=== PATIENT | female | born 1935 | race Caucasian/White ===

== ENCOUNTER 2017-08-17 10:56 | Emergency (ER) | payer OTHER ==
[~2017-08-17] VITALS: Ht 162.6 cm; Wt 61.5 kg
[2017-08-17 11:02] VITALS: BP 182/85
== END 2017-08-17 12:44 | disposition home or self-care (01) ==
LOC: ED 12:00
DX: M75.32 Calcific tendinitis of left shoulder (principal); M13.112 Monoarthritis, not elsewhere classified, left shoulder; E11.9 Type 2 diabetes mellitus without complications; Z90.49 Acquired absence of other specified parts of digestive tract
CPT/HCPCS: 99284

== ENCOUNTER 2017-10-12 10:29 | Emergency (ER) | payer OTHER ==
[~2017-10-12] VITALS: Ht 162.6 cm; Wt 60.0 kg
[2017-10-12 11:56] LABS: BASOPHILS # (AUTO) 0.04 x10^3/uL (0-0.1); BASOPHILS % (AUTO) 0 % (0-1); EOSINOPHILS # (AUTO) 0.21 x10^3/uL (0-0.4); EOSINOPHILS % (AUTO) 2 % (1-7); LYMPHOCYTES # (AUTO) 2.86 x10^3/uL (1-3.4); LYMPHOCYTES % (AUTO) 29 % (22-44); MD NO; MEAN CORPUSCULAR VOLUME 90.9 fL (80-100); MEAN PLATELET VOLUME 7.4 fL (7.4-10.4); MONOCYTES # (AUTO) 0.38 x10^3/uL (0.2-0.8); MONOCYTES % (AUTO) 4 % (2-9); NEUTROPHILS # (AUTO) 6.43 x10^3/uL (1.8-6.8); NEUTROPHILS % (AUTO) 65 % (42-75); PLATELET COUNT 374 x10^3/uL (130-400); RED BLOOD COUNT 4.51 x10^6/uL (3.82-5.3); RED CELL DISTRIBUTION WIDTH 14.3 % (9.6-15.2)
[2017-10-12] MEDS ORDERED: MORPHINE SULFATE 4 MG/ML, 1ML ONE (11:57)
[2017-10-12] MEDS ORDERED: ONDANSETRON ODT 4 MG ONE (11:57)
[2017-10-12] MEDS ORDERED: SODIUM CHLORIDE FLUSH 10ML SYR IVF ONE (12:00)
[2017-10-12] MEDS ORDERED: MORPHINE SULFATE 4 MG/ML, 1ML IVPush PRN (12:00)
[2017-10-12] MEDS ORDERED: ONDANSETRON ODT 4 MG PO ONE (12:00)
[2017-10-12 12:09] LABS: ALANINE AMINOTRANSFERASE 21 U/L (12-78); ALBUMIN 3.6 g/dL (3.4-5.0); ANION GAP 9 mmol/L (5-15); CALCIUM 9.4 mg/dL (8.5-10.1); CHLORIDE 103 mmol/L (98-107); CREATININE 0.92 mg/dL (0.55-1.02)
[2017-10-12 12:14] LABS: ALKALINE PHOSPHATASE 54 U/L (45-117); BILIRUBIN,TOTAL 0.3 mg/dL (0.2-1.0); TOTAL PROTEIN 7.4 g/dL (6.4-8.2); TROPONIN I < 0.015 ng/mL (0.000-0.045)
[2017-10-12 12:28] LABS: MICROSCOPIC INDICATED
[2017-10-12 12:39] LABS: CULTURE INDICATED? YES
[2017-10-12] MEDS ORDERED: OMNIPAQUE 350 MG/ML, 100ML BOTTLE ONE (13:23)
[2017-10-12 14:08] VITALS: BP 166/86
== END 2017-10-12 14:18 | disposition home or self-care (01) ==
LOC: ED 13:30
DX: K40.90 Unilateral inguinal hernia, without obstruction or gangrene, not specified as recurrent (principal); N94.89 Other specified conditions associated with female genital organs and menstrual cycle; E11.9 Type 2 diabetes mellitus without complications; I10 Essential (primary) hypertension; M19.90 Unspecified osteoarthritis, unspecified site
CPT/HCPCS: 36415; 74177; 80053; 81001; 83690; 84484; 85025; 87086; 96374; 99285; Q0162; Q9967

== ENCOUNTER 2018-05-25 15:42 | Inpatient (IN) | payer OTHER ==
[~2018-05-25] VITALS: Ht 162.6 cm; Wt 59.8 kg
[2018-05-25 16:27] LABS: BASOPHILS # (AUTO) 0.06 x10^3/uL (0-0.1); BASOPHILS % (AUTO) 1 % (0-1); EOSINOPHILS # (AUTO) 0.42 x10^3/uL (0-0.4); EOSINOPHILS % (AUTO) 4 % (1-7); LYMPHOCYTES # (AUTO) 3.76 x10^3/uL (1-3.4); LYMPHOCYTES % (AUTO) 33 % (22-44); MD NO; MEAN CORPUSCULAR HGB CONC 33.3 g/dL (32.4-35.8); MEAN CORPUSCULAR VOLUME 90.2 fL (80-100); MEAN PLATELET VOLUME 7.5 fL (7.4-10.4); MONOCYTES # (AUTO) 0.56 x10^3/uL (0.2-0.8); MONOCYTES % (AUTO) 5 % (2-9); NEUTROPHILS # (AUTO) 6.59 x10^3/uL (1.8-6.8); NEUTROPHILS % (AUTO) 58 % (42-75); PLATELET COUNT 407 x10^3/uL (130-400); RED BLOOD COUNT 4.51 x10^6/uL (3.82-5.3)
[2018-05-25] MEDS ORDERED: METF500T17 PO (16:31)
[2018-05-25 16:37] LABS: ALBUMIN 3.7 g/dL (3.4-5.0); ANION GAP 10 mmol/L (5-15); CALCIUM 9.6 mg/dL (8.5-10.1); CHLORIDE 105 mmol/L (98-107); CREATININE 1.09 mg/dL (0.55-1.02)
[2018-05-25 18:05] LABS: MICROSCOPIC AUTO
[2018-05-25 18:09] LABS: CULTURE INDICATED? YES
[2018-05-25] MEDS ORDERED: SODIUM CHLORIDE FLUSH 10ML SYR IVF PRN (21:00)
[2018-05-25] MEDS ORDERED: metformin PO (21:06)
[2018-05-25] MEDS ORDERED: diabetes medication PO (21:06)
[2018-05-25] MEDS ORDERED: bp med PO (21:10)
[2018-05-25] MEDS ORDERED: VENLAFAXINE PO (21:10)
[2018-05-25 21:22] VITALS: BP 172/71
[2018-05-25 21:23] VITALS: BP 154/72
[2018-05-25 21:24] VITALS: BP 120/67
[2018-05-25] MEDS ORDERED: PRAV10TA2 PO (22:45)
[2018-05-25] MEDS ORDERED: DOCUSATE 100 MG CAPSULE PO PRN (23:00)
[2018-05-25] MEDS ORDERED: ONDANSETRON 4 MG TABLET PO PRN (23:00)
[2018-05-25] MEDS ORDERED: ACETAMINOPHEN 325 MG TABLET PO PRN (23:00)
[2018-05-25] MEDS ORDERED: LIDODERM 5% PATCH TD PRN (23:00)
[2018-05-25] MEDS ORDERED: OMEP20CA14 PO (23:32)
[2018-05-25] MEDS ORDERED: METF10007 PO (23:32)
[2018-05-25] MEDS ORDERED: VENL150C6 PO (23:32)
[2018-05-25] MEDS ORDERED: COLE625T13 PO (23:32)
[2018-05-25] MEDS ORDERED: HYDROCHLOROTH12.5 MG PO (23:32)
[2018-05-26] VITALS (9 sets, daily range): BP systolic 110–169; BP diastolic 58–76
[2018-05-26] MEDS: SODIUM CHLORIDE 0.9% 1,000 ML IV SCH ×3 (01:30→22:46)
[2018-05-26 06:24] LABS: ALANINE AMINOTRANSFERASE 16 U/L (12-78); ALBUMIN 3.6 g/dL (3.4-5.0); ANION GAP 9 mmol/L (5-15); CALCIUM 9.8 mg/dL (8.5-10.1); CHLORIDE 104 mmol/L (98-107); CHOLESTEROL, TOTAL 212 mg/dL (140-239); CREATININE 0.96 mg/dL (0.55-1.02); TRIGLYCERIDES 245 mg/dL (50-200); VLDL CHOLESTEROL 49 mg/dL (0-25)
[2018-05-26 06:26] LABS: ALKALINE PHOSPHATASE 63 U/L (45-117); BILIRUBIN,TOTAL 0.3 mg/dL (0.2-1.0); CHOL/HDL RATIO 3.5; HDL CHOL % 28 % (28-40); HDL CHOLESTEROL (DIRECT) 60 mg/dL (40-60); LDL CHOLESTEROL,CALCULATED 103 mg/dL (54-169); LDL/HDL RATIO 1.7 (0.5-3.0); TOTAL PROTEIN 7.2 g/dL (6.4-8.2)
[2018-05-26] MEDS: INSULIN LISPRO 100 UNITS/ML, PEN SQ-INSULIN SCH ×4 (07:00→21:00)
[2018-05-26] MEDS ORDERED: LORazepam 0.5MG TABLET PO ONE (09:30)
[2018-05-26] MEDS: ASPIRIN 81 MG TABLET CHEW PO/NG SCH (09:32)
[2018-05-26] MEDS: metFORMIN 500 MG TABLET PO SCH ×2 (12:26→20:58)
[2018-05-26] MEDS: VENLAFAXINE 75 MG CAP ER PO SCH (12:26)
[2018-05-26] MEDS: COLESEVELAM 625 MG TABLET PO SCH ×2 (12:26→20:58)
[2018-05-26] MEDS ORDERED: OMEPRAZOLE 20 MG CAPSULE.DR PO ONE (14:00)
[2018-05-26] MEDS ORDERED: PRAVASTATIN 20 MG TABLET PO SCH (21:00)
[2018-05-27] VITALS (8 sets, daily range): BP systolic 146–188; BP diastolic 71–76
[2018-05-27 05:31] LABS: ANION GAP 6 mmol/L (5-15); CALCIUM 9.1 mg/dL (8.5-10.1); CHLORIDE 110 mmol/L (98-107)
[2018-05-27 05:32] LABS: CREATININE 0.96 mg/dL (0.55-1.02)
[2018-05-27 05:45] LABS: BASOPHILS # (AUTO) 0.03 x10^3/uL (0-0.1); BASOPHILS % (AUTO) 0 % (0-1); EOSINOPHILS # (AUTO) 0.42 x10^3/uL (0-0.4); EOSINOPHILS % (AUTO) 5 % (1-7); LYMPHOCYTES # (AUTO) 2.84 x10^3/uL (1-3.4); LYMPHOCYTES % (AUTO) 35 % (22-44); MD NO; MEAN CORPUSCULAR HEMOGLOBIN 30.4 pg (27.0-34.8); MEAN CORPUSCULAR VOLUME 89.4 fL (80-100); MEAN PLATELET VOLUME 7.4 fL (7.4-10.4); MONOCYTES # (AUTO) 0.43 x10^3/uL (0.2-0.8); MONOCYTES % (AUTO) 5 % (2-9); NEUTROPHILS # (AUTO) 4.33 x10^3/uL (1.8-6.8); NEUTROPHILS % (AUTO) 54 % (42-75); PLATELET COUNT 306 x10^3/uL (130-400); RED CELL DISTRIBUTION WIDTH 13.5 % (9.6-15.2)
[2018-05-27] MEDS: INSULIN LISPRO 100 UNITS/ML, PEN SQ-INSULIN SCH ×2 (07:00→11:00)
[2018-05-27] MEDS ORDERED: OMEPRAZOLE 20 MG CAPSULE.DR PO SCH (07:30)
[2018-05-27] MEDS: COLESEVELAM 625 MG TABLET PO SCH (08:25)
[2018-05-27] MEDS: VENLAFAXINE 75 MG CAP ER PO SCH (08:25)
[2018-05-27] MEDS: metFORMIN 500 MG TABLET PO SCH (08:25)
[2018-05-27] MEDS: ASPIRIN 81 MG TABLET CHEW PO/NG SCH (08:34)
[2018-05-27] MEDS ORDERED: LISINOPRIL 10 MG TABLET PO SCH (15:30)
[2018-05-27] MEDS ORDERED: LISI-167 PO (15:31)
[2018-05-27] MEDS ORDERED: ASPI-515 PO/NG ×2 (15:32→15:34)
== END 2018-05-27 16:30 | disposition home or self-care (01) | DRG 74 ==
LOC: ED 17:26 → EDIP 20:40 → 4EST 21:08
PROVIDERS: ADMIT Internal Medicine; ATTEND Internal Medicine
DX: G90.8 Other disorders of autonomic nervous system (principal); G45.9 Transient cerebral ischemic attack, unspecified; N17.9 Acute kidney failure, unspecified; I95.1 Orthostatic hypotension; E11.43 Type 2 diabetes mellitus with diabetic autonomic (poly)neuropathy; E11.69 Type 2 diabetes mellitus with other specified complication; E78.5 Hyperlipidemia, unspecified; G31.84 Mild cognitive impairment of uncertain or unknown etiology; I10 Essential (primary) hypertension; I45.10 Unspecified right bundle-branch block; R47.02 Dysphasia; Z87.891 Personal history of nicotine dependence; Z90.49 Acquired absence of other specified parts of digestive tract
CPT/HCPCS: 36415; 70450; 70551; 80048; 80053; 80061; 81001; 82040; 82962; 85025; 87086; 93005; 93306; 93880; 99285; G0378; 92522-GN; J7030

== ENCOUNTER 2018-07-05 11:46 | Emergency (ER) | payer OTHER ==
[~2018-07-05] VITALS: Ht 162.6 cm; Wt 60.0 kg
[~2018-07-05 11:46] MED LIST: ASPI-515 PO/NG; COLE625T13 PO; HYDROCHLOROTH12.5 MG PO; LISI-167 PO; METF10007 PO; METF500T17 PO; OMEP20CA14 PO; PRAV10TA2 PO; VENL150C6 PO; VENLAFAXINE PO; bp med PO; diabetes medication PO; metformin PO
[2018-07-05 11:59] VITALS: BP 166/90
[2018-07-05] MEDS ORDERED: COLE625T12 PO (12:29)
--- NOTE | 2018-07-05 12:59 | NUR ---
Patient/Caregiver given discharge instructions and they have confirmed that they understand the instructions. Patient ambulatory with steady gait.
== END 2018-07-05 13:01 | disposition home or self-care (01) ==
LOC: ED 12:27
DX: L98.8 Other specified disorders of the skin and subcutaneous tissue (principal)
CPT/HCPCS: 99281

== ENCOUNTER 2020-01-09 15:21 | Emergency (ER) | payer MEDICARE, OTHER ==
[~2020-01-09] VITALS: Ht 162.6 cm; Wt 62.6 kg
[~2020-01-09 15:21] MED LIST changes: +COLE625T12 PO; +NORT10CA PO; -OMEP20CA14 PO; +OMEP20CA20 PO
[2020-01-09 15:25] VITALS: BP 176/88
--- NOTE | 2020-01-09 17:29 | NUR ---
RECORD CHANGER ASSEMBLER: ATTEMPTED TO CALL PT. PER SCREENERS IN LOBBY, PT LEFT.
[2020-01-12] MEDS ORDERED: LISI5TAB7 PO (11:03)
== END 2020-01-09 17:32 | disposition left against medical advice (07) ==
LOC: ED 17:26

== ENCOUNTER 2020-01-10 11:24 | Inpatient (IN) | payer MEDICARE, OTHER ==
[~2020-01-10] VITALS: Ht 162.6 cm; Wt 56.1 kg
--- NOTE | 2020-01-10 11:40 | NUR ---
84 Y/O FEMALE PRESENTS TO ED WITH C/O SORE THROAT. "I WAS HERE YESTERDAY WITH A SORE THROAT. I'M NOT SURE WHEN IT STARTED. I CAME YESTERDAY AND DIDN'T GET SEEN. MY THROAT IS SO SORE." PT RESTING ON GURNEY. NADN. NO C/O N/V./D, TRAUMA, SYNCOPE, CP, SOB. PT PLACED ON CONT PULSE OX, NIBP.
--- NOTE | 2020-01-10 12:21 | NUR ---
BREAK RN: ASSESSMENT COMPLETED. EKG DONE. PT. WAS PLACED ON THE CP MONITOR AND IS RESTING IN NO ACUTE DISTRESS.
[2020-01-10 12:28] LABS: BASOPHILS # (AUTO) 0.08 x10^3/uL (0-0.1); BASOPHILS % (AUTO) 1 % (0-1); EOSINOPHILS % (AUTO) 1 % (1-7); LYMPHOCYTES # (AUTO) 2.49 x10^3/uL (1-3.4); LYMPHOCYTES % (AUTO) 18 % (22-44); MD NO; MEAN CORPUSCULAR HEMOGLOBIN 28.9 pg (27.0-34.8); MEAN CORPUSCULAR HGB CONC 32.6 g/dL (32.4-35.8); MEAN PLATELET VOLUME 7.2 fL (7.4-10.4); MONOCYTES # (AUTO) 0.55 x10^3/uL (0.2-0.8); MONOCYTES % (AUTO) 4 % (2-9); NEUTROPHILS # (AUTO) 10.77 x10^3/uL (1.8-6.8); NEUTROPHILS % (AUTO) 77 % (42-75); PLATELET COUNT 385 x10^3/uL (130-400); RED BLOOD COUNT 4.31 x10^6/uL (3.82-5.3); RED CELL DISTRIBUTION WIDTH 14.5 % (9.6-15.2)
[2020-01-10 12:41] LABS: ALANINE AMINOTRANSFERASE 20 U/L (12-78); ALBUMIN 3.4 g/dL (3.4-5.0); ANION GAP 8 mmol/L (5-15); CALCIUM 9.4 mg/dL (8.5-10.1); CHLORIDE 97 mmol/L (98-107); CREATININE 1.17 mg/dL (0.55-1.02)
[2020-01-10 12:45] LABS: ALKALINE PHOSPHATASE 72 U/L (45-117); BILIRUBIN,TOTAL 0.3 mg/dL (0.2-1.0); TOTAL PROTEIN 7.5 g/dL (6.4-8.2)
--- NOTE | 2020-01-10 12:51 | NUR ---
Ranulfo grijalva in [facility] - 01/10/20 at 1253 by CAMI RECIEVED BEDSIDE REPORT FROM LANNY GARAY.
--- NOTE | 2020-01-10 12:54 | NUR ---
RECIEVED BEDSIDE REPORT FROM LANNY GARAY.
[2020-01-10] MEDS ORDERED: ONDANSETRON 2MG/ML, 2ML IVPush ONE (13:00)
[2020-01-10] MEDS ORDERED: NITROGLYCERIN SINGLE TAB 0.4 MG SL PRN (13:00)
[2020-01-10] MEDS ORDERED: ASPIRIN 81 MG TABLET CHEW PO ONE (13:00)
[2020-01-10] MEDS ORDERED: MORPHINE SULFATE 4 MG/ML, 1ML IVPush PRN (13:00)
[2020-01-10] MEDS ORDERED: NITROGLYCERIN SINGLE TAB 0.4 MG SL ONE (13:01)
[2020-01-10] MEDS ORDERED: MORPHINE SULFATE 4 MG/ML, 1ML ONE (13:01)
[2020-01-10] MEDS ORDERED: ONDANSETRON 2MG/ML, 2ML ONE (13:01)
[2020-01-10] MEDS ORDERED: ASPIRIN 81 MG TABLET CHEW ONE (13:07)
[2020-01-10] MEDS ORDERED: FENTANYL PF 100 MCG/2ML ONE (13:12)
[2020-01-10] MEDS ORDERED: TICAGRELOR 90 MG TABLET ONE (13:12)
[2020-01-10] MEDS ORDERED: MIDAZOLAM 1 MG/ML, 5ML ONE (13:12)
[2020-01-10] MEDS ORDERED: VERAPAMIL 2.5 MG/ML, 2ML ONE (13:12)
[2020-01-10] MEDS ORDERED: BIVALIRUDIN 250 MG ONE (13:13)
[2020-01-10] MEDS ORDERED: LIDOCAINE 2%, 20ML ONE (13:13)
[2020-01-10] MEDS ORDERED: HEPARIN 1,000 UNITS/ML, 10ML ONE (13:13)
--- NOTE | 2020-01-10 13:15 | NUR ---
Code cardiac called @ [id number] Cardiology called back @ [phone]
[2020-01-10] MEDS ORDERED: HEPARIN 5,000 UNITS/ML, 1ML IV PRN (13:30)
[2020-01-10] MEDS ORDERED: HEPARIN 25,000 UNITS/250ML PMX 250 ML IV PRN (13:30)
[2020-01-10] MEDS ORDERED: HEPARIN 5,000 UNITS/ML, 1ML IV ONE (13:30)
[2020-01-10] MEDS ORDERED: LISINOPRIL 10 MG TABLET PO ONE (13:30)
--- NOTE | 2020-01-10 13:32 | NUR ---
code cardiac called prior. medications administered per edmd pt taken to manager cardiac cath. pt left with all personal belongings.
[2020-01-10] MEDS ORDERED: ASPIRIN 325 MG TABLET EC ONE (14:00)
[2020-01-10] MEDS ORDERED: BIVALIRUDIN 250 MG in SODIUM CHLORIDE 0.9% 50 ML IV SCH (14:08)
[2020-01-10] MEDS: SODIUM CHLORIDE 0.9% 1,000 ML IV SCH (14:46)
[2020-01-10] MEDS: CARVEDILOL 6.25 MG TABLET PO SCH (18:01)
[2020-01-10] MEDS: ATORVASTATIN 80 MG TABLET PO SCH (20:40)
[2020-01-10] MEDS: TICAGRELOR 90 MG TABLET PO SCH (20:40)
[2020-01-11 03:10] VITALS: BP 112/70
[2020-01-11 04:34] LABS: ANION GAP 8 mmol/L (5-15); CALCIUM 8.5 mg/dL (8.5-10.1); CHLORIDE 103 mmol/L (98-107); CHOLESTEROL, TOTAL 244 mg/dL (140-239); CREATININE 1.04 mg/dL (0.55-1.02)
[2020-01-11 04:37] LABS: CHOL/HDL RATIO 4.2; HDL CHOL % 24 % (28-40); HDL CHOLESTEROL (DIRECT) 58 mg/dL (40-60); LDL CHOLESTEROL,CALCULATED 132 mg/dL (54-169); LDL/HDL RATIO 2.3 (0.5-3.0); TRIGLYCERIDES 269 mg/dL (50-200); VLDL CHOLESTEROL 54 mg/dL (0-25)
[2020-01-11] MEDS: OMEPRAZOLE 20 MG CAPSULE.DR PO SCH (05:43)
[2020-01-11] MEDS: ASPIRIN 81 MG TABLET EC PO SCH (05:44)
[2020-01-11] MEDS: CARVEDILOL 6.25 MG TABLET PO SCH ×2 (05:44→22:31)
[2020-01-11] MEDS ORDERED: ASPIRIN 81 MG TABLET EC PO SCH ×2 (06:00→09:00)
[2020-01-11] MEDS: SODIUM CHLORIDE 0.9% 1,000 ML IV SCH ×2 (08:00)
[2020-01-11] MEDS: LISINOPRIL 5 MG TABLET PO SCH (14:29)
[2020-01-11] MEDS: FENOFIBRATE 145 MG TABLET PO SCH (14:29)
[2020-01-11 14:30] VITALS: BP 117/60
[2020-01-11] MEDS: TICAGRELOR 90 MG TABLET PO SCH ×2 (14:30→22:31)
[2020-01-11 18:57] VITALS: BP 146/80
[2020-01-11] MEDS: ATORVASTATIN 80 MG TABLET PO SCH (22:31)
[2020-01-11 22:33] VITALS: BP 172/95
[2020-01-12 00:30] VITALS: BP 120/71
[2020-01-12 05:54] LABS: ANION GAP 7 mmol/L (5-15); CALCIUM 9.4 mg/dL (8.5-10.1); CHLORIDE 108 mmol/L (98-107); CREATININE 1.14 mg/dL (0.55-1.02)
[2020-01-12 06:20] VITALS: BP 127/79
[2020-01-12] MEDS: CARVEDILOL 6.25 MG TABLET PO SCH (06:20)
[2020-01-12] MEDS: ASPIRIN 81 MG TABLET EC PO SCH (06:20)
[2020-01-12] MEDS: OMEPRAZOLE 20 MG CAPSULE.DR PO SCH (06:20)
[2020-01-12] MEDS: FENOFIBRATE 145 MG TABLET PO SCH (08:57)
[2020-01-12] MEDS: TICAGRELOR 90 MG TABLET PO SCH (08:57)
[2020-01-12] MEDS: LISINOPRIL 5 MG TABLET PO SCH (08:58)
[2020-01-12] MEDS ORDERED: ATOR-2 PO (11:03)
[2020-01-12] MEDS ORDERED: TICA90TA PO (11:03)
[2020-01-12] MEDS ORDERED: LISI5TAB7 PO ×2 (11:03)
[2020-01-12] MEDS ORDERED: OMEP-110 PO (11:03)
[2020-01-12] MEDS ORDERED: ASPI81TA45 PO (11:03)
[2020-01-12] MEDS ORDERED: CARV6.2512 PO (11:03)
[2020-01-12] MEDS ORDERED: FENO145T19 PO (11:05)
[2020-01-12 13:05] VITALS: BP 150/70
[2020-01-12] MEDS ORDERED: CARVEDILOL 3.125 MG TABLET PO SCH (18:00)
== END 2020-01-12 13:54 | disposition home or self-care (01) | DRG 246 ==
LOC: ED 13:03 → CCU 14:35 → 5SO 01-11 12:20
PROVIDERS: ADMIT Internal Medicine Cardiovascular Disease; ATTEND Internal Medicine Cardiovascular Disease
PROC: B2111ZZ Fluoroscopy of Multiple Coronary Arteries using Low Osmolar Contrast (ICD-10-PCS; principal; 2020-01-10)
PROC: 027034Z Dilation of Coronary Artery, One Artery with Drug-eluting Intraluminal Device, Percutaneous Approach (ICD-10-PCS; 2020-01-10)
PROC: 4A023N7 Measurement of Cardiac Sampling and Pressure, Left Heart, Percutaneous Approach (ICD-10-PCS; 2020-01-10)
DX: I21.09 ST elevation (STEMI) myocardial infarction involving other coronary artery of anterior wall (principal); I50.41 Acute combined systolic (congestive) and diastolic (congestive) heart failure; E87.1 Hypo-osmolality and hyponatremia; E11.40 Type 2 diabetes mellitus with diabetic neuropathy, unspecified; E78.5 Hyperlipidemia, unspecified; I25.10 Atherosclerotic heart disease of native coronary artery without angina pectoris; I25.5 Ischemic cardiomyopathy; J02.9 Acute pharyngitis, unspecified; I25.84 Coronary atherosclerosis due to calcified coronary lesion; I45.10 Unspecified right bundle-branch block; Z79.899 Other long term (current) drug therapy; Z90.49 Acquired absence of other specified parts of digestive tract; Z87.891 Personal history of nicotine dependence; Z79.84 Long term (current) use of oral hypoglycemic drugs; Z79.82 Long term (current) use of aspirin; I11.0 Hypertensive heart disease with heart failure
CPT/HCPCS: 36415; 71045; 80048; 80053; 80061; 83036; 83880; 84484; 85025; 85520; 87081; 93005; 93454; 96374; 99156; 99157; 99291; C1760; C1769; C1894; C8929; G0378; J0583; J1644; J2250; J2405; J3010; Q9957; C1725; C1874; C1887; J2270; J7030; Q9967

== ENCOUNTER 2020-01-31 11:22 | Emergency (ER) | payer MEDICARE ==
[~2020-01-31] VITALS: Ht 162.6 cm; Wt 61.7 kg
[~2020-01-31 11:22] MED LIST changes: +ASPI81TA45 PO; +ATOR-2 PO; +CARV6.2512 PO; +FENO145T19 PO; +LISI5TAB7 PO; +OMEP-110 PO; +TICA90TA PO
--- NOTE | 2020-01-31 11:38 | NUR ---
PATIENT WHEELED BACK FROM TRIAGE WITH CHIEF COMPLAINT OF DIZZINESS AND N/V X3 DAYS. PATIENT A&OX4, PATIENT DENIES CHEST PAIN, CONNECTED TO TRANSITION ASSISTANT. Addendum: 01/31/20 at 1147 by [email or web address] PATIENT STATES SHE HAS HAD SOME DIARRHEA, AND INCREASED WEAKNESS.
[2020-01-31] MEDS ORDERED: MECLIZINE CHEWABLE 25 MG TAB ONE (12:11)
--- NOTE | 2020-01-31 12:14 | NUR ---
Patient taken to CT.
[2020-01-31] MEDS ORDERED: MECLIZINE CHEWABLE 25 MG TAB PO ONE (12:30)
--- NOTE | 2020-01-31 12:37 | NUR ---
PATIENT BACK FROM CT, 20 GAUGE IV STARTED AND PATIENT MEDICATED PER eMAR. CALL LIGHT WITHIN REACH, SIDE RAILS UP X2, NO FURTHER NEEDS AT THIS TIME.
[2020-01-31 12:40] LABS: BASOPHILS # (AUTO) 0.07 x10^3/uL (0-0.1); BASOPHILS % (AUTO) 1 % (0-1); EOSINOPHILS # (AUTO) 0.32 x10^3/uL (0-0.4); EOSINOPHILS % (AUTO) 3 % (1-7); LYMPHOCYTES # (AUTO) 2.86 x10^3/uL (1-3.4); LYMPHOCYTES % (AUTO) 29 % (22-44); MD NO; MEAN CORPUSCULAR HEMOGLOBIN 29.1 pg (27.0-34.8); MEAN CORPUSCULAR HGB CONC 32.6 g/dL (32.4-35.8); MEAN CORPUSCULAR VOLUME 89.4 fL (80-100); MEAN PLATELET VOLUME 7.7 fL (7.4-10.4); MONOCYTES # (AUTO) 0.43 x10^3/uL (0.2-0.8); MONOCYTES % (AUTO) 4 % (2-9); NEUTROPHILS # (AUTO) 6.22 x10^3/uL (1.8-6.8); NEUTROPHILS % (AUTO) 63 % (42-75); PLATELET COUNT 489 x10^3/uL (130-400); RED BLOOD COUNT 4.12 x10^6/uL (3.82-5.3); RED CELL DISTRIBUTION WIDTH 14.9 % (9.6-15.2)
[2020-01-31 12:45] LABS: ANION GAP 6 mmol/L (5-15); CALCIUM 9.3 mg/dL (8.5-10.1); CHLORIDE 104 mmol/L (98-107); CREATININE 1.25 mg/dL (0.55-1.02); INTERNATIONAL NORMALIZED RATIO 1.11 (0.93-1.1); PROTHROMBIN TIME 11.4 Seconds (9.6-11.5)
[2020-01-31 12:46] LABS: ALBUMIN 3.7 g/dL (3.4-5.0)
[2020-01-31 12:50] LABS: TROPONIN I < 0.015 ng/mL (0.000-0.045)
[2020-01-31] MEDS ORDERED: SODIUM CHLORIDE FLUSH 10ML SYR IVF ONE (13:00)
[2020-01-31] MEDS ORDERED: LISINOPRIL 5 MG TABLET ONE (13:37)
--- NOTE | 2020-01-31 13:40 | NUR ---
ERMD notified of increased BP and reaccuring nausea.
[2020-01-31] MEDS ORDERED: DIAZEPAM 5 MG/ML, 2ML ONE (13:50)
[2020-01-31 13:56] VITALS: BP 174/69
[2020-01-31] MEDS ORDERED: LISINOPRIL 5 MG TABLET PO ONE (14:00)
[2020-01-31] MEDS ORDERED: DIAZEPAM 5 MG/ML, 2ML IV ONE (14:00)
[2020-01-31] MEDS ORDERED: LISINOPRIL 10 MG TABLET PO ONE (14:00)
--- NOTE | 2020-01-31 15:19 | NUR ---
CALLED PATIENT'S RIDE FOR PATIENT SO SHE CAN COME PICK HER UP.
--- NOTE | 2020-01-31 15:45 | NUR ---
Patient given discharge instructions and prescriptions and they have confirmed that they understand the instructions, no questions. Patient signed controlled substance contract. Patient wheeled out in stable condition to friends car, patient was able to ambulate into car without problem.
== END 2020-01-31 15:46 | disposition home or self-care (01) ==
LOC: ED 12:04
DX: R42 Dizziness and giddiness (principal); R11.2 Nausea with vomiting, unspecified; R51 Headache; I45.10 Unspecified right bundle-branch block; I10 Essential (primary) hypertension; E11.9 Type 2 diabetes mellitus without complications
CPT/HCPCS: 36415; 70450; 80048; 82040; 84484; 85025; 85610; 85730; 93005; 96374; 99285; J3360

== ENCOUNTER 2020-06-24 14:54 | Emergency (ER) | payer MEDICARE ==
[~2020-06-24] VITALS: Ht 162.6 cm; Wt 61.0 kg
--- NOTE | 2020-06-24 15:14 | NUR ---
PT BIB EMS FROM [facility]. PER EMS PT WAS FOUND AT THE [facility] FEELING LIKE SHE WAS GOING TO FAINT AND FELT VERY DIZZY. EMS REPORTS BP OF 80/50 UPON ARRIVAL BUT AFTER 400ML OF NS PT'S BP 109/56.
[2020-06-24] MEDS ORDERED: SODIUM CHLORIDE FLUSH 10ML SYR IVF ONE (15:30)
[2020-06-24 15:53] LABS: ALANINE AMINOTRANSFERASE 23 U/L (12-78); ALBUMIN 3.1 g/dL (3.4-5.0); ANION GAP 10 mmol/L (5-15); CALCIUM 9.4 mg/dL (8.5-10.1); CHLORIDE 108 mmol/L (98-107); CREATININE 1.25 mg/dL (0.55-1.02)
[2020-06-24 15:57] LABS: ALKALINE PHOSPHATASE 58 U/L (45-117); BILIRUBIN,TOTAL 0.3 mg/dL (0.2-1.0); TOTAL PROTEIN 6.4 g/dL (6.4-8.2); TROPONIN I < 0.015 ng/mL (0.000-0.045)
[2020-06-24 16:35] LABS: BASOPHILS % (AUTO) 1 % (0-1); EOSINOPHILS % (AUTO) 4 % (1-7); LYMPHOCYTES % (AUTO) 31 % (22-44); MEAN CORPUSCULAR HEMOGLOBIN 29.9 pg (27.0-34.8); MEAN CORPUSCULAR HGB CONC 33.1 g/dL (32.4-35.8); MEAN PLATELET VOLUME 7.8 fL (7.4-10.4); MONOCYTES % (AUTO) 5 % (2-9); NEUTROPHILS % (AUTO) 60 % (42-75); PLATELET COUNT 430 x10^3/uL (130-400); RED BLOOD COUNT 3.64 x10^6/uL (3.82-5.3); RED CELL DISTRIBUTION WIDTH 13.4 % (9.6-15.2)
[2020-06-24 16:36] LABS: MD NO
[2020-06-24 16:48] VITALS: BP 128/69
== END 2020-06-24 17:53 | disposition home or self-care (01) ==
LOC: ED 16:30
DX: E86.0 Dehydration (principal); R55 Syncope and collapse; R42 Dizziness and giddiness; I10 Essential (primary) hypertension; E11.9 Type 2 diabetes mellitus without complications; I25.2 Old myocardial infarction; M19.90 Unspecified osteoarthritis, unspecified site; R07.89 Other chest pain; Z90.89 Acquired absence of other organs; Z90.49 Acquired absence of other specified parts of digestive tract
CPT/HCPCS: 36415; 71045; 80053; 83880; 84484; 85025; 93005; 99285

== ENCOUNTER 2020-07-10 16:08 | Emergency (ER) | payer MEDICARE ==
[~2020-07-10] VITALS: Ht 157.5 cm; Wt 60.8 kg
--- NOTE | 2020-07-10 16:50 | NUR ---
PT STATES SHE DOSE NOT HAVE A PRIMARY CARE DRAura HAS A WOUND ON HER FACE FOR LIKE 4 YEARS. WOUND IS CLOSED OPEN TO AIR.
[2020-07-10 17:43] VITALS: BP 126/62
--- NOTE | 2020-07-10 17:44 | NUR ---
pt in bed no distress
== END 2020-07-10 18:05 | disposition home or self-care (01) ==
LOC: ED 16:50
DX: L98.8 Other specified disorders of the skin and subcutaneous tissue (principal); I10 Essential (primary) hypertension; E11.9 Type 2 diabetes mellitus without complications; I25.2 Old myocardial infarction; Z85.9 Personal history of malignant neoplasm, unspecified; Z90.49 Acquired absence of other specified parts of digestive tract; Z90.89 Acquired absence of other organs
CPT/HCPCS: 99281